=== PATIENT | female | born 1990 | race Caucasian/White ===

== ENCOUNTER 2022-10-25 05:10 | Emergency (ER) | payer SELFPAY ==
[~2022-10-25] VITALS: Ht 160 cm; Wt 72.6 kg
[~2022-10-25 05:10] MED LIST: BISM262C47; MOTRIN
[2022-10-25 05:15] VITALS: BP 119/76
--- NOTE | 2022-10-25 05:15 | NUR ---
TO BED AMBULATORY
--- NOTE | 2022-10-25 05:34 | NUR ---
Urine collected and sent to lab
--- NOTE | 2022-10-25 05:34 | NUR ---
BIB self for c/o lower back pain radiating to pelvic area that started this morning. per pt, started having urinary discomfort yesterday. denies pmhx or allergies.
[2022-10-25 05:51] LABS: APPEARANCE,URINE CLEAR (CLEAR); BILIRUBIN,URINE NEGATIVE (NEGATIVE); BLOOD, URINE 2+ (NEGATIVE); COLOR,URINE YELLOW (YELLOW); LEUKOCYTE ESTERASE ,URINE 1+ (NEGATIVE); NITRITE, URINE NEGATIVE (NEGATIVE); PH,URINE 6.5 (5.0-9.0); UGLUCOSE NEGATIVE (NEGATIVE)
[2022-10-25] MEDS ORDERED: KETOROLAC 15 MG/ML VIAL IM ONE (06:30)
--- NOTE | 2022-10-25 06:42 | NUR ---
Ultrasound by bedside
[2022-10-25] MEDS ORDERED: IBUP-2213 PO (08:04)
[2022-10-25] MEDS ORDERED: CEPH-588 PO (08:04)
== END 2022-10-25 08:50 | disposition home or self-care (01) ==
LOC: MED 05:10
DX: N30.01 Acute cystitis with hematuria (principal); D25.9 Leiomyoma of uterus, unspecified
CPT/HCPCS: 76856; 81001; 81025; 87086; 93976; 96372; 99285; J1885; Q0092